=== PATIENT | male | born 1995 | race Caucasian/White ===

== ENCOUNTER 2018-05-23 19:00 | Emergency (ER) | payer OTHER ==
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
[2018-05-23 20:44] VITALS: BP 124/62
== END 2018-05-23 20:43 | disposition home or self-care (01) ==
LOC: ED 19:00
DX: S66.912A Strain of unspecified muscle, fascia and tendon at wrist and hand level, left hand, initial encounter (principal); X58.XXXA Exposure to other specified factors, initial encounter; Y93.75 Activity, martial arts; Y92.9 Unspecified place or not applicable
CPT/HCPCS: 99281